=== PATIENT | female | born 1995 | race Hispanic/Latino ===

== ENCOUNTER 2016-11-10 10:51 | Emergency (ER) | payer OTHER ==
[~2016-11-10] VITALS: Ht 160 cm; Wt 78.5 kg
[~2016-11-10 10:51] MED LIST: IBUPROFEN600 M1 PO; PREDNISONE20 M1 PO
[2016-11-10 10:59] VITALS: BP 134/83
[2016-11-10] MEDS ORDERED: BACTROBAN15 GM TOP (11:47)
--- NOTE | 2016-11-10 11:47 | ED SKIN/ALLERGY COMPLAINT ---
History of Present Illness General Chief Complaint: Skin Rash/ Abcess Stated Complaint: RASH? Source: patient Exam Limitations: no limitations Vital Signs & Intake/Output Vital Signs & Intake/Output Vital Signs Date Time Temp Pulse Resp B/P B/P Pulse O2 O2 Flow FiO2 Mean Ox Delivery Rate 11/10 1059 97.0 84 20 134/83 97 Room Air Room Air Allergies Coded Allergies: NO KNOWN ALLERGIES (07/13/13) Reconcile Medications Mupirocin Calcium (Bactroban) 2 % CREAM..G. 1 JONN TOP TID impetigo apply to affected area(s) Triage Note: PT TO ED WITH C/O SORE TO UPPER LIP SINCE YESTERDAY. Triage Nurses Notes Reviewed? yes Onset: Abrupt Duration: day(s):, constant Timing: recent history Location: face No Modifying Factors: none : No Patient currently breastfeeds: No HPI: 21-year-old female comes into emergency room with rash to her face. Her daughter has the same thing. She was given a cream. Itching. Painful. Small area just below her nose. Denies any other associated symptoms. Denies any prior history. Past History Travel History Traveled to [place] past 21 day No Medical History Any Pertinent Medical History? 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 No Review of Systems Review of Systems Constitutional: Reports: no symptoms. EENTM: Reports: no symptoms. Respiratory: Reports: no symptoms. Cardiovascular: Reports: no symptoms. GI: Reports: no symptoms. Genitourinary: Reports: no symptoms. Musculoskeletal: Reports: no symptoms. Skin: Reports: see HPI. Neurological/Psychological: Reports: no symptoms. Hematologic/Endocrine: Reports: no symptoms. Immunologic/Allergic: Reports: no symptoms. All Other Systems: Reviewed and Negative Physical Exam Physical Exam General Appearance: well developed/nourished Head: atraumatic Eyes: Bilateral: normal appearance. Ears, Nose, Throat: normal ENT inspection, hearing grossly normal Neck: normal inspection Respiratory: no respiratory distress Cardiovascular: regular rate/rhythm Back: normal inspection Extremities: normal inspection, normal range of motion, no edema Neurologic/Psych: awake, alert, oriented x 3, normal mood/affect Skin: intact, rash Skin Problem Location: face Skin Problem Character: honey-colored crusted lesion upper lip below nose Progress Differential Diagnosis: abscess/cellulitis, allergic reaction, anaphylaxis, asthma, contact dermatitis, drug reaction, impetigo Plan of Care: In no apparent distress. Symptoms most consistent with impetigo. Departure Departure Disposition: HOME OR SELF CARE Condition: Stable Clinical Impression Primary Impression: Impetigo Referrals: PATIENT HAS NO PRIMARY CARE DR (PCP/Family) Additional Instructions: Use Bactroban cream as prescribed. Return if not better in 5-7 days or follow- up with your primary care doctor. Please go over all results of today's visit with your primary care doctor. Contact your primary care doctor to let them know you were here in the emergency room. There may be nonspecific findings which may not be related to your visit today here in the emergency room but may require further evaluation and chronic monitoring by your primary care doctor. If you had a laceration today the chance of foreign body always remains. You should follow-up with your primary care doctor for recheck in 3-5 days for a wound check. If you had an x-ray done there is a chance that a fracture could have been missed on initial read and you should follow-up with your primary care doctor for repeat x-rays if symptoms persist. If your blood pressure was elevated here in the emergency room please have rechecked by her primary care doctor within the next 48 hours by your primary care doctor. If you were prescribed a narcotic here in the emergency room or any type of controlled substances you're not allowed to drive while taking this medication or operate any type of heavy machinery. Narcotics can make you feel lightheaded dizziness nausea and can cause constipation. You may need to cone picker a stool softener. Thank you for choosing [facility] emergency room. Please return to the emergency room immediately if you have any other concerns worsening of symptoms. Departure Forms: Customer Survey General Discharge Information Prescriptions: Current Visit Scripts Mupirocin Calcium (Bactroban) 1 JONN TOP TID #30 GM apply to affected area(s)
== END 2016-11-10 12:13 ==
LOC: ERH 10:51
DX: L01.00 Impetigo, unspecified (principal)

== ENCOUNTER 2017-08-27 23:35 | Inpatient (IN) | payer OTHER ==
[~2017-08-27] VITALS: Ht 160 cm; Wt 96.2 kg
[~2017-08-27 23:35] MED LIST changes: +BACTROBAN15 GM TOP
[2017-08-28 06:33] LABS: ABSOLUTE BASOPHIL COUNT 0 /CUMM (0.0-0.2); ABSOLUTE EOSINOPHIL COUNT 0 /CUMM (0.0-0.7); ABSOLUTE GRANULOCYTE CT 9.5 /CUMM (1.4-6.5); ABSOLUTE LYMPH COUNT 1.5 /CUMM (1.2-3.4); ABSOLUTE MONOCYTE COUNT 0.9 /CUMM (0.10-0.60); BASOPHIL % 0.3 % (0.0-2.0); EOSINOPHIL % 0.2 % (0-5); GRANULOCYTE % 78.9 % (42.2-75.2); MEAN CORPUSCULAR HGB 28.1 PG (27.0-31.0); MEAN CORPUSCULAR HGB CONC 33.3 G/DL (33.0-37.0); MEAN CORPUSCULAR VOLUME 84.5 FL (81.0-99.0); MEAN PLATELET VOLUME 7.9 FL (7.4-10.4); PLATELET COUNT 242 /CUMM (130-400); RBC DISTRIBUTION WIDTH 14.1 % (11.5-14.5)
--- NOTE | 2017-08-28 08:19 | History & Physical Pre-Op ---
General Information and HPI History of Present Illness: 22 yo lmp 11/18/16 edc 08/25/17 in active labor. care significant for late transfer from Dr. King at 27 weeks. FOB . Allergies/Medications Allergies: Coded Allergies: NO KNOWN ALLERGIES (NONE 08/27/17) Home Med list Mupirocin Calcium (Bactroban) 2 % CREAM..G. 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 EENTM: Reports: no symptoms. Cardiovascular: Reports: no symptoms. Respiratory: Reports: no symptoms. GI: Reports: no symptoms. Genitourinary: Reports: no symptoms. Musculoskeletal: Reports: no symptoms. Skin: Reports: no symptoms. Neurological/Psychological: Reports: no symptoms. Hematologic/Endocrine: Reports: no symptoms. Immunologic/Allergic: Reports: no symptoms. All Other Systems: Reviewed and Negative Exam & Diagnostic Data Last 24 Hrs of Vital Signs/I&O Intake & Output 02/05 1600 02/05 0800 02/05 0000 Intake Total Output Total Balance Patient 212 lb Weight Physical Exam: HEENT: NCAT Chest: CTA CV: nl S1S2 Abd: gravid, cephalic Peovic: 6/90/0 Ext No c/c/e Assessment/Plan Assessment/Plan: active labor at 40/3 expectant mgmt As Ranked By This Provider Problem List: 1.
--- NOTE | 2017-08-28 09:56 | Labor & Delivery Summary ---
Delivery Summary Vaginal Delivery: Vaginal: vertex Episiotomy/Lacerations: Episiotomy/Lacerations: EPIS Type: RML Repair: 3-0 LAYERED Anesthesia: EPI Placenta: Placenta: normal, 3 vessel Anesthesia: EPI Baby's Weight: 8-7 Apgars - 1 Min: 3 Apgars - 5 Min: 8
[2017-08-29 07:27] LABS: ABSOLUTE BASOPHIL COUNT 0 /CUMM (0.0-0.2); ABSOLUTE EOSINOPHIL COUNT 0.1 /CUMM (0.0-0.7); ABSOLUTE GRANULOCYTE CT 7.2 /CUMM (1.4-6.5); ABSOLUTE LYMPH COUNT 1.5 /CUMM (1.2-3.4); ABSOLUTE MONOCYTE COUNT 1.1 /CUMM (0.10-0.60); BASOPHIL % 0 % (0.0-2.0); EOSINOPHIL % 0.8 % (0-5); GRANULOCYTE % 73.3 % (42.2-75.2); HEMATOCRIT 28.8 % (37-47); MEAN CORPUSCULAR HGB 28.4 PG (27.0-31.0); MEAN CORPUSCULAR HGB CONC 33.6 G/DL (33.0-37.0); MEAN CORPUSCULAR VOLUME 84.5 FL (81.0-99.0); PLATELET COUNT 187 /CUMM (130-400); RBC DISTRIBUTION WIDTH 14.1 % (11.5-14.5); RED BLOOD CELL CT 3.41 /CUMM (4.20-5.40); WHITE BLOOD CELL COUNT 9.8 /CUMM (4.8-10.8)
[2017-08-30] MEDS ORDERED: IBUPROFEN800 M1 PO (09:54)
== END 2017-08-30 12:03 | DRG 560 ==
LOC: CBCO 23:35 → GNO 08-28 00:52
PROVIDERS: Obstetrics & Gynecology
PROC: 0W8NXZZ Division of Female Perineum, External Approach (ICD-10-PCS; principal; 2017-08-28)
PROC: 10E0XZZ Delivery of Products of Conception, External Approach (ICD-10-PCS; principal; 2017-08-28)
DX: O80 Encounter for full-term uncomplicated delivery (principal); Z37.0 Single live birth; Z3A.40 40 weeks gestation of pregnancy
CPT/HCPCS: 1022; 6050; 36415; 81003; 87086; 87389; 96360; 96372; 96374; G0378; G0463; J2405